=== PATIENT | male | born 1990 | race Caucasian/White ===

== ENCOUNTER 2022-07-21 03:17 | Emergency (ER) | payer OTHER, BC ==
[2022-07-21] MEDS: Distilled Water Ophth Irrig Soln 120 ML Bottle EYERT ONE (04:03)
[2022-07-21] MEDS: Tetracaine HCl/PF 0.5% 4 ML Bottle EYERT ONE (04:04)
== END 2022-07-21 04:05 | disposition home or self-care (01) ==
LOC: LL.ED 03:17
DX: S05.01XA Injury of conjunctiva and corneal abrasion without foreign body, right eye, initial encounter (principal); W45.8XXA Other foreign body or object entering through skin, initial encounter
CPT/HCPCS: 99283